=== PATIENT | male | born 1955 | race Caucasian/White ===

== ENCOUNTER 2016-08-13 11:46 | Day surgery (SDC) | payer OTHER ==
[2016-08-13] VITALS (8 sets, daily range): BP systolic 126–149; BP diastolic 81–88; PULSE 72–86; RESP 12–19; O2SAT 95–98
[~2016-08-13] VITALS: Ht 188 cm; Wt 95.2 kg
[~2016-08-13 11:46] MED LIST: ATOR20TA PO; CeFAZolin Inj 2 GM in IV Premix 1 EACH IV ONE; LOSA1TAB69 PO; Lactated Ringer's 1,000 ML IV SCH; TRAM50TA2 PO
[2016-08-13] MEDS ORDERED: Ondansetron 2 mg/mL 2 mL Inj ONE (11:47)
[2016-08-13] MEDS ORDERED: Propofol 10,000 mCg/mL 20 mL Inj ONE (11:47)
[2016-08-13] MEDS ORDERED: Phenylephrine/NS 100 mCg/mL 10 mL Syringe IVPUSH ONE (11:47)
[2016-08-13] MEDS ORDERED: Dexamethasone 4 mg/mL Inj ONE (11:47)
[2016-08-13] MEDS ORDERED: fentaNYL-PF 50 mCg/mL 2 mL Inj ONE (11:47)
[2016-08-13] MEDS ORDERED: EPHEDrine/NS 5 mg/mL 5 mL Syringe ONE (11:47)
[2016-08-13] MEDS ORDERED: CeFAZolin Inj 2 gm / 50mL D5W IV ONE (11:59)
[2016-08-13] MEDS: Lactated Ringer's 1,000 ML IV SCH ×2 (12:09→15:52)
[2016-08-13] MEDS ORDERED: Phenylephrine 10,000 mCg/mL Inj IVPUSH PRN (15:40)
[2016-08-13] MEDS ORDERED: Lactated Ringer's 500 ML IV PRN (15:40)
[2016-08-13] MEDS ORDERED: MetoCLOpramide 5 mg/mL 2 mL Inj IVPUSH PRN (15:40)
[2016-08-13] MEDS ORDERED: Ondansetron 2 mg/mL 2 mL Inj IVPUSH PRN (15:40)
[2016-08-13] MEDS ORDERED: Dexamethasone 4 mg/mL Inj IVPUSH PRN (15:40)
[2016-08-13] MEDS ORDERED: Lactated Ringer's 1,000 ML IV SCH (15:40)
[2016-08-13] MEDS ORDERED: EPHEDrine Sulfate 50 mg/mL Inj IVPUSH PRN (15:40)
[2016-08-13] MEDS ORDERED: HYDROmorphone 1 mg/mL Inj IVPUSH PRN (15:40)
--- NOTE | 2016-08-13 15:40 | PCM.HPANE ---
Patient Data Surgeon Admitting Provider: Attending Provider:Romeo Clifton MD Primary Care Physician:Ran Jerry MD Other Provider:Bee Singhingham Anesthesia Reason for Visit Left Knee Displaced Patella Fracture Ht/WT & BMI Height (Feet): 6 Height (Inches): 2 Weight (Kilograms): 94.347 Body Mass Index 26.00 Allergies Coded Allergies: No Known Allergies (Unverified , 08/13/16) Past Anesthesia History Anesthesia History: Denies:: Anesthesia Reactions, Fam Anesthesia Reaction, Fam Malignant Hypertherm Diabetes History Hx Diabetes?: No MRSA MRSA: No Medications Hypertension Medication: Yes (lisinopril/hctz) Reported Medications Tramadol 50 Mg [id number] Mg PO Q8H PRN For Pain Ref 0 08/12/16 Losartan/HCTZ 50-12.5 mg 1 Each Tablet1 Tablet PO DAILY Ref 0 08/12/16 Atorvastatin (Lipitor)20 Mg [id number] Mg PO DAILY Ref 0 08/12/16 History History of ENT Problems?: No Hx of Heart Problems?: Yes Cardiovascular History: Positive for:: Hypertension (hyperlipidemia) Denies:: Heart Murmur Hx of Respiratory Problem?: Yes Respiratory History: Denies:: Use of C-PAP Machine Hx Neurologic Problems?: No Hx of GI Problems?: No Hx of Problems?: No Male Hx: Denies:: Prostate Problems Scrotal Mass Testicular Surgery Skin History: Denies:: History Skin Disorders? Pressure Ulcers Hx Musculoskeletal Problems?: Yes Musculoskeletal History: Positive for:: Musculoskeletal Trauma (lt patellar fx (doi 08/06/16)=current problem in knee immobilizer) Hx of Psycho/Social Problems?: No Hx Surgeries?: No Hx Any Other Health Problems?: No Other History: Denies:: Cancer Endocrine Disease Hospitalization Thyroid Disease History Blood Transfusions: Denies:: Blood Transfusions Hx Diabetes: No Have You Smoked inLast 12 mo: No Stop/Bang S-Snoring: Do You Snore Loudly: No T-Tired: feel tired, fatigued: No O-Obsered: Observed not breath: No P-Blood Pressure: treated: Yes B- Body Mass Index > 35 kg/m2: No A- Age over 50: Yes N- Neck Large Circumference: No G- Gender Male: Yes ARACELI Total Score: 3 Risk Assessment Category Category 1A: Patient has history of documented sleep apnea, and HAS NOT received any narcotic, sedative or anesthesia administration during this stay. Category 1B: Patient has history of documented sleep apnea, and HAS received any narcotic , sedative or anesthesia administration during this stay Category 2: Patient has SUSPECTED Obstructive Sleep Apnea, and HAS received any narcotic , sedative or anesthesia administration during this stay. Category 3: Patient has SUSPECTED Obstructive Sleep Apnea and HAS NOT received narcotic, sedative or anesthesia administration during this stay. Category 4: Outpatient in Procedural Areas with known sleep apnea or who screen positive for High Risk via the STOP/BANG questionnaire. Exam Exam General Appearance: Alert, Oriented X3, Cooperative, No Acute Distress HEENT/AIRWAY: MP 3, Mouth Opening (small) Lungs: Clear to Auscultation Heart: Exam Unremarkable Plan Impression Patient chart reviewed, patient interviewed and anesthestic plan with risks, benefits, and alternatives discussed, and informed consent obtained. ASA Physical Status: ASA2 Mod Systemic Disease Anesthetic Plan: GA Bene/Risks/Altern/Consents: Yes HP Complete Prior to Induction: Yes Conrad Miguel MD Aug 13, 2016 07:54
[2016-08-13] MEDS ORDERED: Bupivacaine-MPF 0.5% 30 mL Inj INFILTRATE ONE (15:52)
[2016-08-13] MEDS ORDERED: Lactated Ringer's 1,000 ML IV ONE (17:22)
--- NOTE | 2016-08-13 17:38 | PCM.ANEP1 ---
Post Anesthesia Phase 1 PACU Phase 1 Assessment Vital Signs Vital Signs Date Time Temp Pulse Resp B/P Pulse Ox O2 Delivery O2 Flow Rate FiO2 08/13/16 17:33 36.2 85 19 131/83 95 Room Air 08/13/16 12:17 35.6 72 16 126/81 98 Room Air Anesthetic Administered: GA Level of Alertness: Awake, talking PALACIOS's with Equal Strength: Yes Pain: No Nausea or Vomiting: No Oxygen Delivery: Room Air Lungs: Clear to Auscultation Dermatome Level: Full Sensation Conrad Miguel MD Aug 13, 2016 17:38
[2016-08-13] MEDS ORDERED: HYDROcodone-APAP 5-325 mg Tablet PO PRN (17:40)
[2016-08-13] MEDS ORDERED: HYDROcodone-APAP 7.5-325 mg Tablet PO PRN (17:40)
[2016-08-13] MEDS ORDERED: hydrOXYzine Pamoate 25 mg Capsule PO PRN (17:40)
[2016-08-13] MEDS ORDERED: oxyCODONE-Acetamin 5-325 mg Tablet PO PRN (17:40)
--- NOTE | 2016-08-13 17:45 | PCM.ANEP2 ---
Post Anesthesia Evaluation ASA/CMS Post Anesthesia VS in Patient's Normal Range?: Yes Resp Stable; Airway Patent?: Yes CV Function & Hydration Stable: Yes Mental Status Recovered?: Yes Pain control Satisfactory?: Yes N/V Control Satisfactory?: Yes Conrad Miguel MD Aug 13, 2016 17:45
--- NOTE | 2016-08-13 17:48 | DRSVH ---
PROCEDURE: X-RAY LEFT KNEE, ONE OR TWO VIEWS ([id number]) INDICATIONS: LEFT PATELLA FRACTURE REPAIR TECHNIQUE: 2 intraoperative spot views of the knee were acquired. COMPARISON: None. FINDINGS: Bones: 2 interrupted spot films demonstrate ORIF of the patella. Alignment is anatomic. Soft tissues: No joint effusion. No suspicious soft tissue calcifications. IMPRESSION: ORIF of the patella. Dictated by: Donaldo Vieyra M.D. on 08/13/2016 at 17:47 Approved by: Donaldo Vieyra M.D. on 08/13/2016 at 17:47
[2016-08-13] MEDS: fentaNYL-PF 50 mCg/mL 2 mL Inj IVPUSH PRN ×2 (17:58→18:10)
--- NOTE | 2016-08-14 06:56 | OP ---
[address] [address] OPERATIVE REPORT PATIENT: MELINDA AG : 1955 MR#: [id number] ADMIT: 08/13/2016 JOB ID: [id number] DATE OF SURGERY: 08/13/2016 PREOPERATIVE DIAGNOSIS(ES): Minimally displaced left vertical patellar fracture. ICD 10 code S82.022A. POSTOPERATIVE DIAGNOSIS(ES): Minimally displaced left vertical patellar fracture. ICD 10 code S82.022A. PROCEDURE: 1. Closed reduction, cannulated screw fixation, left patellar fracture. CPT Code 72821. 2. Aspiration of left knee, hemiarthrosis. CPT code 96131. SURGEON: Romeo Clifton MD. ASSISTING: Abbe Escobar PA-C. Abbe Escobar was an integral portion of the procedure, helping to stabilize the leg while I placed the cannulated screws in the patella. ANESTHESIA: General. DRAINS: None. COMPLICATIONS: None. FLUIDS: Knee aspirated for 35 mL of grossly bloody fluid. COUNTS: Sponge and needle count correct. No complications. INDICATIONS: This 61-year-old male fell on to his left knee. He sustained a vertical left patellar fracture with only about a millimeter offset on the sunrise view. The fracture itself encompassed about 1/3 of the patella. The patient was not doing well with the knee immobilizer. With a significant to risk of shifting of the fracture with the patient being too active, he was offered surgical intervention for repair with a cannulated screw fixation. DESCRIPTION OF PROCEDURE: Under adequate general anesthetic, a well-padded tourniquet was applied to the left thigh. The left leg was prepped and draped in a sterile fashion. The leg was elevated, exsanguinated, tourniquet inflated to 300 mmHg. Image intensification was utilized to evaluate the vertical patellar fracture. A small incision was fashioned over the lateral aspect of the patella. Incision was carried down through the skin and subcutaneous tissue to the lateral border of the patella. The guide pin was introduced with a tissue protector horizontally from lateral to medial on the patella. Image intensification confirmed good position of the guide pin in the central portion of the patella from the anteroposterior view. Another guide pin was then introduced inferior to that pin with a good bridge of bone in between and it was placed parallel to the other guide pin. Image intensification confirmed good position of both guide pins. They were measured and then subsequently over-drilled with a cannulated drill. One 46 mm long threaded lag screw was placed over one of the guide pins and one 44 mm long threaded lag screw was placed over the guide pin, and the fracture was compressed. Please note, that initially I did place a tenaculum clamp around the edge of the patella to slightly compress the patella. The remaining compression was completed utilizing the lag screws. The guide pins were subsequently removed after image intensification pictures were taken. Attention was next turned to aspiration of the left knee joint. Left knee joint was sterilely aspirated for 35 mL of grossly bloody fluid and the joint was infiltrated with 10 mL of 0.5% plain Marcaine. The wound was also instilled with some 0.5% plain Marcaine. Tourniquet was released and minimal hemostasis required. A few subcuticular sutures of 4-0 Vicryl were utilized. Skin was reapproximated with running subcuticular suture of 4-0 Monocryl. Mastisol and Steri-Strips were applied and the patient was placed in a bulky sterile dressing and then placed in his knee immobilizer. The patient tolerated the procedure well. He was taken to recovery in stable condition. Sponge and needle count correct. PLAN: The patient was discharged to home. We will see him back in follow up in two weeks for a wound check and we will clip the Monocryl sutures flush with the skin. The patient is to stay in his knee immobilizer and not bend the knee. He may bear weight with the knee with crutches. The patient was also placed on some oral aspirin for DVT prophylaxis over the next three weeks. Cc: [facility] Orthopedics CC: Aleta Dodge
== END 2016-08-13 23:59 | disposition home or self-care (01) ==
LOC: SAS 11:46
PROVIDERS: ATTEND Orthopaedic Surgery
DX: S82.022A Displaced longitudinal fracture of left patella, initial encounter for closed fracture (principal); I10 Essential (primary) hypertension; E78.5 Hyperlipidemia, unspecified; E78.00 Pure hypercholesterolemia, unspecified; W18.30XA Fall on same level, unspecified, initial encounter; Y93.01 Activity, walking, marching and hiking; Y92.9 Unspecified place or not applicable; Y99.8 Other external cause status
CPT/HCPCS: 27524; 36415; 73560; 76001; 84132; C1713; J0690; J1100; J1885; J2370; J2405; J3010; J7120